=== PATIENT | female | born 2000 | race African-American/Black ===

== ENCOUNTER 2023-05-15 05:11 | Emergency (ER) | payer BC ==
[2023-05-15 06:22] LABS: SARS-CoV-2 NAA Rapid Test Not Detected (NotDetected)
== END 2023-05-15 07:17 | disposition home or self-care (01) ==
LOC: CSHERS 05:11
DX: B34.9 Viral infection, unspecified (principal); Z20.822 Contact with and (suspected) exposure to COVID-19
CPT/HCPCS: 99283; U0002